=== PATIENT | female | born 1995 | race Caucasian/White ===

== ENCOUNTER 2017-08-02 18:44 | Emergency (ER) | payer OTHER ==
[~2017-08-02] VITALS: Ht 149.9 cm; Wt 54.9 kg
[~2017-08-02 18:44] MED LIST: BACTRIM DS TAB1 EACH; BIRTH CONTROLL; BUTALB-APAP-CA1 EACH PO; CELEXA 10 MG TA10 M1; HYDROCODONE-AP1 EAC6 PO; IBUPROFEN 800800 M1 PO; IBUPROFEN 800800 MG PO; MACROBID 100 M100 M1 PO; MIRENA1 EACH IY; NOHOMEMEDICATIONS; NORCO 5-325 TA1 EACH PO; ONDANSETRON HCL4 M2 PO; PHENERGAN25 M2 RC; PRENATAL; TAMIFLU45 MG; TAMSULOSIN HCL0.4 M1 PO; TESSALON PERLE100 MG PO; TOPAMAX 25 MG T25 M1 PO; ZOFRAN ODT4 MG PO; ZOFRAN4 MG PO; ZPAK PO
[2017-08-02 20:28] VITALS: BP 132/91
== END 2017-08-02 20:29 | disposition home or self-care (01) ==
LOC: M.ERS 18:44
DX: S93.402A Sprain of unspecified ligament of left ankle, initial encounter (principal); G43.909 Migraine, unspecified, not intractable, without status migrainosus; Z88.5 Allergy status to narcotic agent; W19.XXXA Unspecified fall, initial encounter; Y93.89 Activity, other specified; Y92.89 Other specified places as the place of occurrence of the external cause; Y99.8 Other external cause status

== ENCOUNTER 2020-11-08 14:16 | Emergency (ER) | payer OTHER, MEDICAID ==
[~2020-11-08] VITALS: Ht 149.9 cm; Wt 53.5 kg
[2020-11-08] MEDS ORDERED: PROGESTERONE100 MG PO (14:34)
[2020-11-08] MEDS ORDERED: XYOSTED100 MG/0.5 SUBQ (14:36)
[2020-11-08] MEDS ORDERED: PREMARIN0.45 MG SUBQ (14:37)
[2020-11-08 14:43] LABS: URINE BILIRUBIN NEGATIVE (Negative); URINE BLOOD NEGATIVE (Negative); URINE CLARITY CLEAR; URINE COLOR YELLOW; URINE GLUCOSE-RANDOM NEGATIVE (Negative); URINE KETONES NEGATIVE (Negative); URINE NITRITE-REFLEX NEGATIVE (Negative); URINE PROTEIN NEGATIVE (Negative); URINE UROBILINOGEN 0.2 E.U./dl (0.2-1.0)
[2020-11-08 14:46] LABS: URINE LEUKOCYTES-REFLEX 2+ (Negative)
[2020-11-08 14:50] LABS: CASTS None Seen /LPF (None Seen); CRYSTALS None Seen /LPF (None Seen); SQUAMOUS 0-3 Few /LPF (0-3); URINE RBC 0-2 Rare /HPF (0-2); URINE WBC-REFLEX 0-5 Rare /HPF (0-5)
[2020-11-08] MEDS ORDERED: BACTRIM DS TAB1 EACH PO (15:09)
[2020-11-08] MEDS ORDERED: ONDANSETRON HCL4 M2 PO (15:09)
[2020-11-08 15:36] VITALS: BP 118/77
== END 2020-11-08 15:37 | disposition home or self-care (01) ==
LOC: M.ERS 14:16
PROVIDERS: Physician Assistant
DX: R39.11 Hesitancy of micturition (principal); M54.5 Low back pain; R39.15 Urgency of urination; Z88.8 Allergy status to other drugs, medicaments and biological substances; Z88.5 Allergy status to narcotic agent; Z79.899 Other long term (current) drug therapy; Z98.51 Tubal ligation status

== ENCOUNTER 2020-11-27 15:32 | Emergency (ER) | payer OTHER, MEDICAID ==
[~2020-11-27] VITALS: Ht 149.9 cm; Wt 54.4 kg
[~2020-11-27 15:32] MED LIST changes: +BACTRIM DS TAB1 EACH PO; +PREMARIN0.45 MG SUBQ; +PROGESTERONE100 MG PO; +XYOSTED100 MG/0.5 SUBQ
[2020-11-27 17:53] LABS: ABSOLUTE LYMPHOCYTES 2.7 thou/uL (0.8-5.3); ABSOLUTE MONOCYTES 0.4 thou/uL (0.0-1.2); ABSOLUTE NEUTROPHILS 3.2 thou/uL (1.6-8.1); BASOPHILS 0.4 %; EOSINOPHILS 0.1 %; HEMATOCRIT 41.1 % (37.0-47.0); HEMOGLOBIN 14.1 gm/dL (12.0-15.0); LYMPHOCYTES 43.1 %; MCH 31.7 pg (26.0-34.0); MCHC 34.4 g/dL (28.0-37.0); MCV 92.2 fL (80.0-100.0); MPV 9.5 fl. (7.2-11.1); NUCLEATED RBCS 0 /100WBC; PLATELET COUNT* 182 thou/uL (150-400); POLYS 49.4 %; RBC 4.46 mil/uL (4.20-5.00); RDW-CV 13.2 % (10.5-14.5); WBC 6.4 thou/uL (4.0-11.0)
[2020-11-27 18:35] LABS: CALCIUM 8.6 mg/dL (8.5-10.1); CREATININE 0.6 mg/dL (0.6-1.3); POTASSIUM 3.7 mmol/L (3.5-5.1)
[2020-11-27 18:39] LABS: ALBUMIN 3.7 g/dL (3.4-5.0); TOTAL BILIRUBIN 0.2 mg/dL (<0.1-1.0); TOTAL PROTEIN 7.5 g/dL (6.4-8.2)
[2020-11-27] MEDS ORDERED: FLEXERIL PO (18:46)
[2020-11-27] MEDS ORDERED: VENTOLIN HFA 1818 GM INH (18:46)
[2020-11-27 18:58] VITALS: BP 117/79
== END 2020-11-27 18:59 | disposition home or self-care (01) ==
LOC: M.ERS 15:32
PROVIDERS: Nurse Practitioner Family
DX: U07.1 COVID-19 (principal); M79.662 Pain in left lower leg; M79.18 Myalgia, other site; G43.909 Migraine, unspecified, not intractable, without status migrainosus; F17.210 Nicotine dependence, cigarettes, uncomplicated; Z88.5 Allergy status to narcotic agent; Z88.8 Allergy status to other drugs, medicaments and biological substances; Z98.51 Tubal ligation status